=== PATIENT | female | born 1955 | race Caucasian/White ===

== ENCOUNTER 2018-12-31 20:27 | Inpatient (IN) | payer SELFPAY ==
[~2018-12-31] VITALS: Ht 165.1 cm; Wt 101.0 kg
[2018-12-31] MEDS ORDERED: SODIUM CHLORIDE 0.9% 1,000 ML IV ONE ×2 (21:38→22:00)
[2018-12-31] MEDS ORDERED: OLANZAPINE 10 MG/VIAL IM ONE (21:45)
[2018-12-31] MEDS ORDERED: LORAZEPAM 2MG/ML CPJ IM ONE ×2 (21:45→22:15)
[2018-12-31 22:06] LABS: BASOPHILS % 0.7 % (0.0-2.0); EOSINOPHILS % 0.1 % (0.0-5.0); HEMATOCRIT. 42.2 % (36.0-48.0); HEMOGLOBIN. 14.7 g/dL (12.0-16.0); LYMPHOCYTES % 22.8 % (20.0-50.0); MEAN CORPUSCULAR HEMOGLOBIN 29.5 pg (28.0-32.0); MEAN CORPUSCULAR VOLUME 84.7 fL (81.0-99.0); MEAN PLATELET VOLUME 10.9 fl (7.4-10.4); MONOCYTES % 9.1 % (2.0-8.0); NEUTROPHILS % 67.3 % (40.0-76.0); PLATELET 124 x1000/uL (130-400); RED BLOOD CELL COUNT 4.98 mill/uL (4.2-5.4); RED CELL DISTRIBUTION WIDTH 12.7 % (11.6-14.6)
[2018-12-31 22:10] LABS: CHLORIDE 97 mEq/L (98-107)
[2018-12-31 22:13] LABS: ETHANOL BLOOD < 10 mg/dL
[2019-01-01] MEDS ORDERED: ASPIRIN 325MG EC TABLET PO ONE (00:30)
[2019-01-01 00:34] LABS: *AMPHETAMINES SCREEN URINE NEGATIVE (NEGATIVE); *BARBITURATES SCREEN URINE NEGATIVE (NEGATIVE); *BENZODIAZEPINES SCREEN URINE NEGATIVE (NEGATIVE)
[2019-01-01 00:35] LABS: *COCAINE SCREEN URINE NEGATIVE (NEGATIVE); METHADONE URINE SCREEN NEGATIVE (NEGATIVE); OPIATES URINE SCREEN NEGATIVE (NEGATIVE); PHENCYCLIDINE URINE SCREEN NEGATIVE (NEGATIVE)
[2019-01-01 00:36] LABS: CANNABINOID URINE SCREEN NEGATIVE (NEGATIVE)
[2019-01-01] MEDS ORDERED: DOCUSATE SODIUM 100MG CAPSULE PO PRN (07:45)
[2019-01-01] MEDS ORDERED: GUAIFENESIN 200MG/10ML SUGAR FREE UDC PO PRN (07:45)
[2019-01-01] MEDS ORDERED: NA PHOS,M-B/NA PHOS,DI-BA ENEMA 118ML PR PRN (07:45)
[2019-01-01] MEDS ORDERED: HYDROMORPHONE HCL/PF 2MG/ML CPJ IV PRN (07:45)
[2019-01-01] MEDS ORDERED: LORAZEPAM 2MG/ML CPJ IV PRN (07:45)
[2019-01-01] MEDS ORDERED: ACETAMINOPHEN 325MG TABLET PO PRN (07:45)
[2019-01-01] MEDS ORDERED: MAGNESIUM/ALUMINUM HYDROXIDE/SIMETHICONE 30ML UDC PO PRN (07:45)
[2019-01-01] MEDS ORDERED: IPRATROPIUM/ALBUTEROL 0.5-3(2.5)MG/3ML NEB INH PRN (07:45)
[2019-01-01] MEDS ORDERED: CLONIDINE 0.1MG TABLET PO PRN (07:45)
[2019-01-01] MEDS ORDERED: ONDANSETRON HCL 4MG/2ML INJ IV PRN (07:45)
[2019-01-01] MEDS ORDERED: HYDRALAZINE 20MG/ML VIAL IV PRN (07:45)
[2019-01-01] MEDS ORDERED: DEXTROSE 50% WATER 50ML SYRINGE IV PRN (07:45)
[2019-01-01] MEDS ORDERED: HYDROCODONE/ACETAMINOPHEN 10/325MG TABLET PO PRN (07:45)
[2019-01-01] MEDS ORDERED: DIPHENHYDRAMINE 50MG/ML VIAL IV PRN (07:45)
[2019-01-01] MEDS: BLOOD SUGAR DIAGNOSTIC STRIP TEST SCH ×4 (09:00→20:59)
[2019-01-01 10:00] VITALS: BP 180/80
[2019-01-01] MEDS: INSULIN LISPRO 100 UNITS/ML SUBCUT SCH ×4 (10:54→21:07)
[2019-01-01] MEDS ORDERED: ASPIRIN 81MG EC TABLET PO SCH (11:00)
[2019-01-01 12:00] VITALS: BP 168/58
[2019-01-01] MEDS ORDERED: ENOXAPARIN 40MG/0.4ML SYR SUBCUT SCH (12:00)
[2019-01-01] MEDS: SODIUM CHLORIDE 0.9% INJ 3ML FLUSH IVF SCH ×2 (13:33→20:43)
[2019-01-01 15:53] LABS: CREATINE KINASE 287 IU/L (26-192)
[2019-01-01 15:54] LABS: CREATINE KINASE MB FRACTION 10.2 ng/mL (0.5-3.6)
[2019-01-01 16:00] VITALS: BP 155/63
[2019-01-01] MEDS ORDERED: DAPA10TA PO (19:07)
[2019-01-01] MEDS ORDERED: METF-416 PO (19:07)
[2019-01-01] MEDS ORDERED: TIZA4TAB4 PO (19:07)
[2019-01-01] MEDS ORDERED: LOSA100T14 PO (19:07)
[2019-01-01] MEDS ORDERED: INSU100I11 SQ (19:07)
[2019-01-01] MEDS ORDERED: ENAL20TA PO (19:07)
[2019-01-01 20:00] VITALS: BP 167/96
[2019-01-01] MEDS ORDERED: IBUP-2271 PO (20:45)
[2019-01-01 21:00] VITALS: BP 155/82
[2019-01-01] MEDS ORDERED: IBUPROFEN 200MG TABLET PO PRN (22:15)
[2019-01-02] VITALS: BP 159/84
[2019-01-02 01:26] LABS: CREATINE KINASE 278 IU/L (26-192)
[2019-01-02 01:27] LABS: CREATINE KINASE MB FRACTION 8.1 ng/mL (0.5-3.6)
[2019-01-02 04:00] VITALS: BP 156/80
[2019-01-02] MEDS: SODIUM CHLORIDE 0.9% INJ 3ML FLUSH IVF SCH (05:08)
[2019-01-02] MEDS ORDERED: TIZANIDINE HCL 4MG TABLET PO SCH (06:00)
[2019-01-02] MEDS: BLOOD SUGAR DIAGNOSTIC STRIP TEST SCH (06:29)
[2019-01-02] MEDS ORDERED: METFORMIN HCL 500MG TABLET PO SCH (07:50)
[2019-01-02] MEDS: INSULIN LISPRO 100 UNITS/ML SUBCUT SCH (07:58)
[2019-01-02 08:28] VITALS: BP 122/45
[2019-01-02] MEDS ORDERED: [UNRECOGNIZED DRUG - OTHER] SQ SCH (09:00)
[2019-01-02] MEDS ORDERED: INSULIN LISPRO PROTAMIN SQ SCH (09:00)
[2019-01-02] MEDS ORDERED: DAPAGLIFLOZIN PROPANEDIOL 10 MG PO SCH (09:00)
[2019-01-02] MEDS ORDERED: MEDICATION NOT ON FORMULARY EA (Enalapril Maleate 20 MG) PO SCH (09:00)
[2019-01-02] MEDS ORDERED: LOSARTAN POTASSIUM 100 MG TABLET PO SCH (09:00)
[2019-01-02] MEDS ORDERED: LISPRO SQ SCH (09:00)
== END 2019-01-02 11:42 | disposition home or self-care (01) | DRG 861 ==
LOC: ER 20:27 → 6WST 01-01 00:50 → ENRESERV 01-01 08:43
PROVIDERS: ADMIT Internal Medicine; ATTEND Internal Medicine
DX: R41.82 Altered mental status, unspecified (principal); E11.9 Type 2 diabetes mellitus without complications; I10 Essential (primary) hypertension; Z79.4 Long term (current) use of insulin; Z91.14 Patient's other noncompliance with medication regimen; Z98.891 History of uterine scar from previous surgery; Z98.51 Tubal ligation status
CPT/HCPCS: 36415; 71045; 80305; 80307; 80320; 80329; 82140; 82550; 82553; 82962; 84484; 93005; 96372; 99285; J1200; J1650; J1815; J2060; J3490; J7030; G0480